=== PATIENT | female | born 1980 | race Caucasian/White ===

== ENCOUNTER 2017-10-21 01:41 | Emergency (ER) | payer MEDICAID ==
[2017-10-21 02:38] LABS: PLATELET COUNT 280 x10^3mcL (130-400); RED CELL DISTRIBUTION WIDTH 11.9 % (11.5-14.5)
[2017-10-21 02:39] LABS: BASOPHIL % 4.4 % (0-2)
[2017-10-21 02:43] LABS: microscopic required? YES; urine erythrocyte 3+ (NEGATIVE)
[2017-10-21 04:53] VITALS: BP 147/79
== END 2017-10-21 04:53 | disposition home or self-care (01) ==
LOC: ED 01:41
PROVIDERS: Emergency Medicine
DX: O03.9 Complete or unspecified spontaneous abortion without complication (principal); Z98.890 Other specified postprocedural states
CPT/HCPCS: 36415; J1885